=== PATIENT | female | born 1960 | race Caucasian/White ===

== ENCOUNTER 2018-03-20 08:48 | Emergency (ER) | payer OTHER, BC, SELFPAY ==
[2018-03-20] MEDS: NORCO, ANEXSIA 5/325MG TABLET (HYDROcodone/ACETAMINOPHEN) PO ×2 (09:24)
== END 2018-03-20 10:34 | disposition home or self-care (01) ==
LOC: M ED 08:48
DX: S39.012A Strain of muscle, fascia and tendon of lower back, initial encounter (principal); S93.402A Sprain of unspecified ligament of left ankle, initial encounter; S83.92XA Sprain of unspecified site of left knee, initial encounter; W01.0XXA Fall on same level from slipping, tripping and stumbling without subsequent striking against object, initial encounter; Y92.098 Other place in other non-institutional residence as the place of occurrence of the external cause; Z88.0 Allergy status to penicillin; Z88.2 Allergy status to sulfonamides
CPT/HCPCS: 73564

== ENCOUNTER → 2018-03-28 | Outpatient (REF) | payer OTHER ==
[2018-03-29 12:23] LABS: ANION GAP 10 MEQ/L (8-16); BLOOD UREA NITROGEN 18 MG/DL (7-18); CARBON DIOXIDE LEVEL 22 MEQ/L (21-32); CHLORIDE LEVEL 109 MEQ/L (98-107); CREATININE FOR GFR 0.59 MG/DL (0.55-1.30); GLOMERULAR FILTRATION RATE > 60.0 (>51); GLUCOSE, FASTING 75 MG/DL (70-100); SODIUM LEVEL 141 MEQ/L (136-145)
== END ==
LOC: M SFHCCLAY 14:14
DX: M79.662 Pain in left lower leg (principal)

== ENCOUNTER → 2023-12-28 | Outpatient (CLI) | payer OTHER ==
[~2023-12-28] MED LIST: BENA12.56 PO; CHLO0.12 MT; CLIN150C17 PO; HYDR-3715 PO; MOTR200T44 PO; OXYC1TAB23 PO; PERI0.126 SSP; RISATAB3 PO; ULTR50TA8 PO
== END ==
LOC: M RAD 15:50
PROVIDERS: ATTEND Physician Assistant
DX: M54.50 Low back pain, unspecified (principal); M25.552 Pain in left hip

== ENCOUNTER 2024-08-04 01:32 | Inpatient (IN) | payer OTHER ==
[~2024-08-04] VITALS: Ht 162.6 cm; Wt 107.9 kg
[2024-08-04 03:19] LABS: BASO # 0.1 10^3/uL (0.0-0.2); BASO % 0.2 % (0.0-1.0); HEMATOCRIT 41.4 % (36.0-47.0); HEMOGLOBIN 13.9 g/dl (12.0-15.5); LYMPH # 1.5 10^3/uL (1.5-5.0); LYMPH % 5.6 % (24.0-44.0); MEAN CORPUSCULAR HEMOGLOBIN 31.5 pg (27.0-33.0); MEAN CORPUSCULAR HGB CONC 33.6 g/dl (32.0-36.5); MEAN CORPUSCULAR VOLUME 93.9 fl (80.0-96.0); MONO % 7.1 % (2.0-8.0); NEUTROPHILS # 23.6 10^3/uL (1.5-8.5); NEUTROPHILS % 85.9 % (36.0-66.0); PLATELET COUNT, AUTOMATED 259 10^3/uL (150-450); RED BLOOD COUNT 4.41 10^6/uL (4.00-5.40); WHITE BLOOD COUNT 27.5 10^3/uL (4.0-10.0)
[2024-08-04 03:33] LABS: INR 0.99; PARTIAL THROMBOPLASTIN TIME 26.4 SECONDS (24.8-34.2); PROTHROMBIN TIME 13.4 SECONDS (12.5-14.5)
[2024-08-04 03:44] LABS: ALBUMIN 3.5 G/DL (3.2-5.2); ALKALINE PHOSPHATASE 157 U/L (35-104); ALT/SGPT 45 U/L (7.0-40); AMYLASE 43 U/L (30-118); AST/SGOT 35 U/L (<34); BILIRUBIN,DIRECT 0.2 MG/DL (<0.4); BILIRUBIN,TOTAL 0.4 MG/DL (0.3-1.2); BLOOD UREA NITROGEN 14 MG/DL (9-23); C REACTIVE PROTEIN QUANTITATIV 4.86 MG/DL (<1.0); CALCIUM LEVEL 10.9 MG/DL (8.3-10.6); CARBON DIOXIDE LEVEL 19 MMOL/L (20-31); CHLORIDE LEVEL 111 MMOL/L (98-107); CREATININE FOR GFR 0.62 MG/DL (0.55-1.30); GLOMERULAR FILTRATION RATE > 60.0 (>45); GLUCOSE, FASTING 146 MG/DL (74-106); POTASSIUM SERUM 4.3 MMOL/L (3.5-5.1); SODIUM LEVEL 141 MMOL/L (136-145); TOTAL PROTEIN 7.6 G/DL (5.7-8.2)
[2024-08-04 03:51] LABS: PROCALCITONIN 0.63 ng/ml
[2024-08-04] MEDS: ACETAMINOPHEN 325 MG TAB PO ONE ×2 (04:30→09:11)
[2024-08-04] MEDS: NS (Normal Saline) 0.9% 1,000 ML IV ONE (04:53)
[2024-08-04] MEDS: CEFEPIME HCL 2 GM in DEXTROSE 5% (D5W) ADV/MINI-BAG 50 ML IV ONE (05:15)
[2024-08-04] MEDS: NS (Normal Saline) 0.9% 2,000 ML in IV 1 EA IV ONE (06:24)
[2024-08-04 06:36] LABS: KETONE, URINE AUTO RFX NEGATIVE (NEGATIVE); MUCUS, URINE RFX MODERATE (NEGATIVE); NITRITE, URINE AUTO RFX NEGATIVE (NEGATIVE); RBC, URINE AUTO RFX 2 /HPF (0-3); SQUAM EPITHELIAL CELL UR AURFX 22 /HPF (0-6); WBC, URINE AUTO RFX 0 /HPF (0-3)
[2024-08-04 06:39] LABS: LEUKOCYTE ESTERASE UR AUTO RFX 1+ (NEGATIVE)
[2024-08-04] MEDS ORDERED: ISOVUE-370 76% 100ML VIAL As Ordered ONE (07:31)
[2024-08-04] MEDS: VANCOMYCIN HCL 2,000 MG, VIAL MATE ADAPTER 1 EACH in NS 500 ML IV ONE (10:23)
[2024-08-04] MEDS ORDERED: BAYE500T2 PO (10:32)
[2024-08-04] MEDS ORDERED: HOME MED LIST COMPLETE! XX SCH (10:35)
[2024-08-04] MEDS ORDERED: MAALOX 30 ML SUSP *UDC PO PRN (11:25)
[2024-08-04] MEDS: MUPIROCIN 2% OINT 22 GM TUBE TOP SCH (12:21)
[2024-08-04] MEDS: NS (Normal Saline) 0.9% 1,000 ML IV SCH (13:02)
[2024-08-04] MEDS: CEFEPIME HCL 2 GM in DEXTROSE 5% (D5W) ADV/MINI-BAG 50 ML IV SCH (13:02)
[2024-08-04 15:30] VITALS: BP 128/70; TEMP 100.1; O2SAT 98
[2024-08-04] MEDS: ACETAMINOPHEN 325 MG TAB PO PRN (15:51)
[2024-08-04] MEDS: PERCOCET 5MG/325MG TAB PO PRN (16:34)
[2024-08-04] MEDS ORDERED: CEFEPIME HCL 2 GM in DEXTROSE 5% (D5W) ADV/MINI-BAG 50 ML IV SCH (17:00)
[2024-08-04 20:03] VITALS: BP 114/55; TEMP 97; O2SAT 94
[2024-08-04] MEDS: NYSTATIN 100,000 UNITS/GM TOPICAL PWD 15GM TOP SCH (21:03)
[2024-08-04] MEDS: VANCOMYCIN HCL 1,000 MG, VIAL MATE ADAPTER 1 EACH in NS 250 ML IV SCH (21:03)
[2024-08-05 04:07] VITALS: BP 137/72; TEMP 100.3; O2SAT 95
[2024-08-05 06:01] LABS: BASO % 0.2 % (0.0-1.0); EOS # 0.1 10^3/uL (0.0-0.5); EOS % 0.6 % (0.0-3.0); HEMATOCRIT 35.5 % (36.0-47.0); HEMOGLOBIN 12.1 g/dl (12.0-15.5); LYMPH # 1.8 10^3/uL (1.5-5.0); LYMPH % 11.2 % (24.0-44.0); MEAN CORPUSCULAR HGB CONC 34.1 g/dl (32.0-36.5); MEAN CORPUSCULAR VOLUME 93.9 fl (80.0-96.0); MONO # 1.2 10^3/uL (0.0-0.8); MONO % 7.4 % (2.0-8.0); NEUTROPHILS # 12.8 10^3/uL (1.5-8.5); NEUTROPHILS % 79.9 % (36.0-66.0); PLATELET COUNT, AUTOMATED 189 10^3/uL (150-450); RED BLOOD COUNT 3.78 10^6/uL (4.00-5.40); WHITE BLOOD COUNT 16.1 10^3/uL (4.0-10.0)
[2024-08-05 06:20] LABS: BLOOD UREA NITROGEN 5 MG/DL (9-23); CALCIUM LEVEL 9.9 MG/DL (8.3-10.6); CARBON DIOXIDE LEVEL 20 MMOL/L (20-31); CHLORIDE LEVEL 113 MMOL/L (98-107); CREATININE FOR GFR 0.44 MG/DL (0.55-1.30); GLOMERULAR FILTRATION RATE > 60.0 (>45); GLUCOSE, FASTING 113 MG/DL (74-106); MAGNESIUM LEVEL 1.7 MG/DL (1.8-2.4); POTASSIUM SERUM 3.7 MMOL/L (3.5-5.1); SODIUM LEVEL 143 MMOL/L (136-145)
[2024-08-05 07:01] LABS: HEMOGLOBIN A1c 5.4 % (4.0-6.0)
[2024-08-05] MEDS: MAG SULF 1GM/100ML (MAG RUN) 1 GM in IV 1 EA IV SCH (09:17)
[2024-08-05] MEDS: ENOXAPARIN 40MG/0.4ML SYRINGE (J1650 PER 10MG) SC SCH (09:17)
[2024-08-05] MEDS: VANCOMYCIN HCL 1,000 MG, VIAL MATE ADAPTER 1 EACH in NS 250 ML IV ONE (12:45)
[2024-08-05] MEDS ORDERED: guaiFENesin DM *SUGAR FREE* 5ML**DIABETIC TUSSIN DM PO PRN (15:45)
[2024-08-05] MEDS: BENZONATATE 100MG CAPSULE PO SCH (17:07)
[2024-08-05] MEDS: guaiFENesin DM *SUGAR FREE* 5ML**DIABETIC TUSSIN DM PO ONE (17:22)
[2024-08-05] MEDS ORDERED: VANCOMYCIN HCL 1,000 MG, VIAL MATE ADAPTER 1 EACH in NS 250 ML IV SCH (18:00)
[2024-08-05] MEDS: guaiFENesin ER TABLET 600 MG TAB PO SCH (21:05)
[2024-08-05] MEDS: VANCOMYCIN HCL 1,500 MG, VIAL MATE ADAPTER 1 EACH in NS 500 ML IV SCH (21:05)
[2024-08-06 04:51] VITALS: BP 131/72; TEMP 98.5; O2SAT 93
[2024-08-06 06:22] LABS: BASO % 0.3 % (0.0-1.0); EOS # 0.2 10^3/uL (0.0-0.5); EOS % 2.1 % (0.0-3.0); HEMATOCRIT 34.7 % (36.0-47.0); HEMOGLOBIN 11.4 g/dl (12.0-15.5); LYMPH # 2.2 10^3/uL (1.5-5.0); LYMPH % 20.6 % (24.0-44.0); MEAN CORPUSCULAR HEMOGLOBIN 30.7 pg (27.0-33.0); MEAN CORPUSCULAR HGB CONC 32.9 g/dl (32.0-36.5); MEAN CORPUSCULAR VOLUME 93.5 fl (80.0-96.0); MONO # 0.8 10^3/uL (0.0-0.8); MONO % 7.5 % (2.0-8.0); NEUTROPHILS # 7.4 10^3/uL (1.5-8.5); NEUTROPHILS % 68.8 % (36.0-66.0); PLATELET COUNT, AUTOMATED 198 10^3/uL (150-450); RED BLOOD COUNT 3.71 10^6/uL (4.00-5.40); WHITE BLOOD COUNT 10.8 10^3/uL (4.0-10.0)
[2024-08-06 06:45] LABS: BLOOD UREA NITROGEN 6 MG/DL (9-23); CALCIUM LEVEL 9.5 MG/DL (8.3-10.6); CARBON DIOXIDE LEVEL 21 MMOL/L (20-31); CHLORIDE LEVEL 113 MMOL/L (98-107); CREATININE FOR GFR 0.42 MG/DL (0.55-1.30); GLOMERULAR FILTRATION RATE > 60.0 (>45); GLUCOSE, FASTING 111 MG/DL (74-106); POTASSIUM SERUM 3.6 MMOL/L (3.5-5.1); SODIUM LEVEL 143 MMOL/L (136-145)
[2024-08-06 07:29] LABS: VANCOMYCIN RANDOM 10.5 UG/ML
[2024-08-06] MEDS: SENOKOT S TAB PO SCH (09:58)
[2024-08-06] MEDS: VANCOMYCIN HCL 2,000 MG, VIAL MATE ADAPTER 1 EACH in NS 500 ML IV SCH (11:33)
[2024-08-06 12:00] VITALS: BP 138/74; TEMP 98.1; O2SAT 94
[2024-08-06 20:22] VITALS: BP 143/79; TEMP 97.9; O2SAT 94
[2024-08-07 04:13] VITALS: BP 146/82; TEMP 98.8; O2SAT 93
[2024-08-07 07:06] LABS: BASO % 0.5 % (0.0-1.0); EOS # 0.2 10^3/uL (0.0-0.5); HEMATOCRIT 33.3 % (36.0-47.0); HEMOGLOBIN 11.1 g/dl (12.0-15.5); LYMPH % 26.1 % (24.0-44.0); MEAN CORPUSCULAR HEMOGLOBIN 31.1 pg (27.0-33.0); MEAN CORPUSCULAR HGB CONC 33.3 g/dl (32.0-36.5); MEAN CORPUSCULAR VOLUME 93.3 fl (80.0-96.0); MONO # 0.5 10^3/uL (0.0-0.8); MONO % 7.1 % (2.0-8.0); NEUTROPHILS # 4.7 10^3/uL (1.5-8.5); NEUTROPHILS % 62.4 % (36.0-66.0); PLATELET COUNT, AUTOMATED 205 10^3/uL (150-450); RED BLOOD COUNT 3.57 10^6/uL (4.00-5.40); WHITE BLOOD COUNT 7.6 10^3/uL (4.0-10.0)
[2024-08-07 07:29] LABS: BLOOD UREA NITROGEN 7 MG/DL (9-23); CALCIUM LEVEL 9.4 MG/DL (8.3-10.6); CARBON DIOXIDE LEVEL 23 MMOL/L (20-31); CHLORIDE LEVEL 113 MMOL/L (98-107); CREATININE FOR GFR 0.41 MG/DL (0.55-1.30); GLOMERULAR FILTRATION RATE > 60.0 (>45); GLUCOSE, FASTING 104 MG/DL (74-106); MAGNESIUM LEVEL 1.9 MG/DL (1.8-2.4); POTASSIUM SERUM 3.7 MMOL/L (3.5-5.1); SODIUM LEVEL 144 MMOL/L (136-145)
[2024-08-07] MEDS: MOM 30ML SUSPENSION UDC PO PRN (10:22)
[2024-08-07] MEDS: LevoFLOXacin 750 MG TABLET PO SCH (16:35)
[2024-08-07 19:32] LABS: URINE STREP PNEUMONIAE ANTIGEN NOT DETECTED (NOT DETECT)
[2024-08-07 20:00] VITALS: BP 145/81; TEMP 98.1; O2SAT 95
[2024-08-07] MEDS: DOXYCYCLINE HYCLATE 100MG TABLET PO SCH (21:18)
[2024-08-08 04:16] VITALS: BP 147/80; TEMP 97.9; O2SAT 93
[2024-08-08 05:52] LABS: BASO # 0.1 10^3/uL (0.0-0.2); BASO % 0.7 % (0.0-1.0); EOS # 0.2 10^3/uL (0.0-0.5); EOS % 2.8 % (0.0-3.0); HEMATOCRIT 36.9 % (36.0-47.0); HEMOGLOBIN 12.5 g/dl (12.0-15.5); LYMPH # 2.1 10^3/uL (1.5-5.0); LYMPH % 27.7 % (24.0-44.0); MEAN CORPUSCULAR HEMOGLOBIN 31.3 pg (27.0-33.0); MEAN CORPUSCULAR HGB CONC 33.9 g/dl (32.0-36.5); MEAN CORPUSCULAR VOLUME 92.5 fl (80.0-96.0); MONO # 0.7 10^3/uL (0.0-0.8); MONO % 9.5 % (2.0-8.0); NEUTROPHILS # 4.4 10^3/uL (1.5-8.5); NEUTROPHILS % 57.5 % (36.0-66.0); PLATELET COUNT, AUTOMATED 232 10^3/uL (150-450); RED BLOOD COUNT 3.99 10^6/uL (4.00-5.40); WHITE BLOOD COUNT 7.6 10^3/uL (4.0-10.0)
[2024-08-08 06:14] LABS: BLOOD UREA NITROGEN 8 MG/DL (9-23); CARBON DIOXIDE LEVEL 23 MMOL/L (20-31); CHLORIDE LEVEL 109 MMOL/L (98-107); CREATININE FOR GFR 0.47 MG/DL (0.55-1.30); GLOMERULAR FILTRATION RATE > 60.0 (>45); GLUCOSE, FASTING 95 MG/DL (74-106); POTASSIUM SERUM 3.7 MMOL/L (3.5-5.1); SODIUM LEVEL 143 MMOL/L (136-145)
[2024-08-08] MEDS ORDERED: BENZ-18 PO (11:02)
[2024-08-08] MEDS ORDERED: SENN-52 PO (11:02)
[2024-08-08] MEDS ORDERED: BACI1CAP PO (11:02)
[2024-08-08] MEDS ORDERED: NYST10006 TOP (11:02)
[2024-08-08] MEDS ORDERED: LEVO75TAB PO (11:02)
[2024-08-08] MEDS ORDERED: DOXY100T PO (11:02)
[2024-08-08] MEDS ORDERED: MUCI600T31 PO (11:02)
[2024-08-08] MEDS ORDERED: MUPI2OI TOP (11:02)
[2024-08-08 12:12] VITALS: BP 156/85; TEMP 98.1; O2SAT 95
[2024-08-09 23:16] LABS: MYCOPLASMA PNEUMONIAE IGG 2.48 (<=0.90)
== END 2024-08-08 14:32 | disposition home or self-care (01) | DRG 720 ==
LOC: M ED 01:32 → M ED INP 11:24 → EEVIPCON 11:24 → M MSPAV 14:59
PROVIDERS: ADMIT Student in an Organized Health Care Education/Training Program; ATTEND General Practice
DX: A41.9 Sepsis, unspecified organism (principal); E87.20 Acidosis, unspecified; L97.929 Non-pressure chronic ulcer of unspecified part of left lower leg with unspecified severity; L97.919 Non-pressure chronic ulcer of unspecified part of right lower leg with unspecified severity; L98.429 Non-pressure chronic ulcer of back with unspecified severity; L03.115 Cellulitis of right lower limb; L08.9 Local infection of the skin and subcutaneous tissue, unspecified; K59.00 Constipation, unspecified; R91.1 Solitary pulmonary nodule; R21 Rash and other nonspecific skin eruption; Z88.0 Allergy status to penicillin; Z88.2 Allergy status to sulfonamides; Z79.82 Long term (current) use of aspirin; R65.20 Severe sepsis without septic shock; B95.62 Methicillin resistant Staphylococcus aureus infection as the cause of diseases classified elsewhere

== ENCOUNTER 2024-11-24 07:59 | Emergency (ER) | payer MEDICAID, MEDICARE, OTHER ==
[~2024-11-24] VITALS: Ht 162.6 cm; Wt 100.5 kg
[~2024-11-24 07:59] MED LIST changes: +BACI1CAP PO; +BAYE500T2 PO; +BENZ-18 PO; +DOXY100T PO; +LEVO75TAB PO; +MUCI600T31 PO; +MUPI2OI TOP; +NYST10006 TOP; +SENN-52 PO
[2024-11-24 09:02] LABS: KETONE, URINE AUTO RFX NEGATIVE (NEGATIVE); MUCUS, URINE RFX SMALL (NEGATIVE); NITRITE, URINE AUTO RFX NEGATIVE (NEGATIVE); RBC, URINE AUTO RFX 19 /HPF (0-3); SQUAM EPITHELIAL CELL UR AURFX 2 /HPF (0-6)
[2024-11-24 09:19] LABS: LEUKOCYTE ESTERASE UR AUTO RFX 3+ (NEGATIVE); WBC, URINE AUTO RFX TNTC /HPF (0-3)
[2024-11-24] MEDS: NS (Normal Saline) 0.9% 1,000 ML IV ONE (09:20)
[2024-11-24 10:07] LABS: BASO # 0.0 10^3/uL (0.0-0.2); BASO % 0.3 % (0.0-1.0); EOS # 0.1 10^3/uL (0.0-0.5); EOS % 1.2 % (0.0-3.0); LYMPH # 2.9 10^3/uL (1.5-5.0); LYMPH % 31.7 % (24.0-44.0); MONO # 0.9 10^3/uL (0.0-0.8); MONO % 9.7 % (2.0-8.0); NEUTROPHILS # 5.2 10^3/uL (1.5-8.5); NEUTROPHILS % 56.8 % (36.0-66.0); PLATELET COUNT, AUTOMATED 223 10^3/uL (150-450)
[2024-11-24 10:32] LABS: ALT/SGPT 24 U/L (7.0-40); AST/SGOT 19 U/L (<34); CALCIUM LEVEL 10.8 MG/DL (8.3-10.6); CARBON DIOXIDE LEVEL 21 MMOL/L (20-31); CHLORIDE LEVEL 113 MMOL/L (98-107); CREATININE FOR GFR 0.41 MG/DL (0.55-1.30); GLOMERULAR FILTRATION RATE > 90.0 (>45); POTASSIUM SERUM 4.2 MMOL/L (3.5-5.1); SODIUM LEVEL 147 MMOL/L (136-145)
[2024-11-24] MEDS: KETOROLAC 30 MG/ML 1 ML VIAL IV ONE (11:59)
[2024-11-24] MEDS ORDERED: ASPE4PAD TOP (12:02)
[2024-11-24] MEDS ORDERED: METH-1165 PO (12:02)
[2024-11-24] MEDS ORDERED: CEFD1CAP9 PO (12:02)
[2024-11-24 12:08] VITALS: BP 149/67; TEMP 98; O2SAT 98
[2024-11-24] MEDS: CEFDINIR 300 MG CAP PO ONE (12:17)
== END 2024-11-24 12:22 | disposition home or self-care (01) ==
LOC: M ED 07:59
DX: N39.0 Urinary tract infection, site not specified (principal); M51.360 Other intervertebral disc degeneration, lumbar region with discogenic back pain only; M16.0 Bilateral primary osteoarthritis of hip; R91.1 Solitary pulmonary nodule; Z88.0 Allergy status to penicillin; Z88.2 Allergy status to sulfonamides; R16.0 Hepatomegaly, not elsewhere classified; K76.0 Fatty (change of) liver, not elsewhere classified
CPT/HCPCS: 36415; 74176; 80053; 81001; 83690; 85025; 87088; 87186; 96361; 96374; 99284; J1885

== ENCOUNTER → 2025-03-13 | Outpatient (REF) | payer MEDICARE ==
[~2025-03-13] MED LIST changes: +ASPE4PAD TOP; +CEFD1CAP9 PO; +METH-1165 PO
[2025-03-13 18:17] LABS: PTH INTACT 145.0 PG/ML (18.5-88.0)
[2025-03-13 18:19] LABS: IRON (FE) 75 UG/DL (50-170)
[2025-03-13 18:20] LABS: RHEUMATOID FACTOR QUANT < 3.5 IU/ML (<14)
[2025-03-13 18:52] LABS: HEPATITIS C VIRUS ABY INDEX < 0.02 INDEX (<0.8)
[2025-03-15 10:18] LABS: PROTEIN, TOTAL SO 8.0 g/dL (6.1-8.1)
[2025-03-17 19:22] LABS: LYME TOTAL ANTIBODY CIA <= 0.90 Index (<=0.90)
[2025-03-19 08:12] LABS: ALBUMIN SO 4.3 g/dL (3.8-4.8); ALPHA 1 GLOBULINS SO 0.3 g/dL (0.2-0.3); ALPHA 2 GLOBULINS SO 0.7 g/dL (0.5-0.9); BETA 2 GLOBULIN SO 0.6 g/dL (0.2-0.5); BETA GLOBULIN SO 0.6 g/dL (0.4-0.6); GAMMA GLOBULINS SO 1.4 g/dL (0.8-1.7)
== END ==
LOC: M LAB REF 17:14
PROVIDERS: ATTEND Internal Medicine
DX: M25.50 Pain in unspecified joint (principal); M54.50 Low back pain, unspecified

== ENCOUNTER 2025-05-09 22:57 | Emergency (ER) | payer MEDICARE, OTHER ==
[~2025-05-09] VITALS: Ht 165.1 cm; Wt 90.9 kg
[2025-05-10 01:29] LABS: PLATELET COUNT, AUTOMATED 217 10^3/uL (150-450)
[2025-05-10 01:40] LABS: CALCIUM LEVEL 10.9 MG/DL (8.3-10.6); CARBON DIOXIDE LEVEL 21 MMOL/L (20-31); CHLORIDE LEVEL 108 MMOL/L (98-107); CREATININE FOR GFR 0.50 MG/DL (0.55-1.30); GLOMERULAR FILTRATION RATE > 90.0 (>45); POTASSIUM SERUM 4.2 MMOL/L (3.5-5.1); SODIUM LEVEL 139 MMOL/L (136-145)
[2025-05-10 04:25] LABS: KETONE, URINE AUTO RFX TRACE mg/dL (NEGATIVE); LEUKOCYTE ESTERASE UR AUTO RFX NEGATIVE (NEGATIVE); MUCUS, URINE RFX SMALL (NEGATIVE); NITRITE, URINE AUTO RFX NEGATIVE (NEGATIVE); RBC, URINE AUTO RFX 0 /HPF (0-3); SQUAM EPITHELIAL CELL UR AURFX 4 /HPF (0-6); WBC, URINE AUTO RFX 4 /HPF (0-3)
[2025-05-10] MEDS ORDERED: ISOVUE-370 76% 100 ML VIAL As Ordered ONE (08:10)
[2025-05-10 09:12] LABS: C REACTIVE PROTEIN QUANTITATIV 4.26 MG/DL (<1.0)
[2025-05-10 09:13] LABS: ALT/SGPT 19.0 U/L (7.0-40); AST/SGOT 20.0 U/L (<34)
[2025-05-10 09:43] VITALS: TEMP 96.3
[2025-05-10] MEDS: KETOROLAC 30 MG/ML 1 ML VIAL IV ONE (10:59)
[2025-05-10 11:21] VITALS: BP 137/69; O2SAT 96
[2025-05-10] MEDS ORDERED: KETO-204 PO (12:31)
== END 2025-05-10 14:04 | disposition home or self-care (01) ==
LOC: EDBD 22:57 → M ED 22:57
DX: M79.10 Myalgia, unspecified site (principal); E21.0 Primary hyperparathyroidism; Z86.19 Personal history of other infectious and parasitic diseases; Z88.0 Allergy status to penicillin; Z88.2 Allergy status to sulfonamides
CPT/HCPCS: 71045; 71260; 74177; 80048; 80076; 81001; 84145; 85027; 85652; 86140; 87486; 87581; 87633; 87798; 96374; 99285; J1885; Q9967